=== PATIENT | female | born 1940 | race Caucasian/White ===

== ENCOUNTER 2017-01-10 14:05 | Emergency (ER) | payer MEDICARE ==
[2017-01-10] MEDS ORDERED: HYDROmorphone HCL/PF 1 MG/ML DISP.SYRIN IVP ONE (14:22)
--- NOTE | 2017-01-10 14:27 | ED Physician Documentation ---
General Adult - HISTORIAN Historian: patient - HPI Stated Complaint: low back pain, L hip pain Chief Complaint: General Adult Onset: days ago Timing: still present Severity: moderate Further Comments: yes (Pt is a 76 yo female with low back and L hip & L thigh pain. Pt says she lifted her 100 lb dog a few days ago. Pain did not start on that occasion, however, but began the next day. Pt says she feels as though she has muscle cramps in her L thigh.) - ROS CONST: no problems EYES/ENT: none CVS/RESP: none GI/: none MS/SKIN/LYMPH: other (low back pain; L hip/thigh pain, cramping) - PAST HX Past History: hypertension, other (Hyperlipidemia, anxiety) Allergies/Adverse Reactions: Allergies Allergy/AdvReac Type Severity Reaction Status Date / Time Penicillins Allergy Verified 01/10/17 14:30 - SOCIAL HX Smoking History: cigarettes - FAMILY HX Family History: No - REVIEWED ASSESSMENTS Nursing Assessment Reviewed: Yes Vitals Reviewed: Yes Progress - Progress Progress: X-ray L-spine: Advanced multilevel lumbar spondylosis. X-ray pelvis & L hip: Lower lumbar spondylosis is present. The osseous pelvis and proximal left femur are intact without fracture, dislocation, arthropathy, or focal bone lesion. [place] (5/325) 2 tablets po in ER. Rx [place] (5/325). Take one or two tablets by mouth every 4 to 6 hrs as needed for moderate to severe pain. Pt, who lives alone, requested to stay in [facility]. Pt's daughter is flying here from her home in the [facility]. Expect to d/c pt after daughter arrives in [place]. Admit to [facility], Dr. Manzano. ED Results Lab/Radiology - Orders Orders: ED Orders Category Date Time Status HYDROmorphone HCL/PF [Dilaudid] Med 01/10/17 14:22 Discontinued 1 mg IVP NOW ONE General Adult Physical Exam - PHYSICAL EXAM GENERAL APPEARANCE: moderate distress EENT: eye inspection normal, pharynx normal NECK: normal inspection, supple RESPIRATORY: no resp distress, chest non-tender, breath sounds normal CVS: reg rate & rhythm, heart sounds normal ABDOMEN: soft, normal bowel sounds, non-tender BACK: normal inspection, no CVA tenderness SKIN: warm/dry, normal color EXTREMITIES: no evidence of injury, tenderness (L thigh (muscular)) NEURO: oriented X3, motor nml, sensation nml, other (DTR's wnl) Discharge Clincal Impression: L hip/thigh pain Low back pain Qualifiers: Chronicity: acute Back pain laterality: unspecified Sciatica presence: unspecified whether sciatica present Qualified Code(s): M54.5 - Low back pain Referrals: Pamela Joel MD [Primary Care Provider] - Condition: Good Disposition: [address] [place] [address] Decision to Admit: [id number] Date of Decison to Admit: 01/10/17 (ICF) Decision Time: 17:45
[2017-01-10] MEDS: HYDROcodone /APAP 5/325 1 EACH TABLET PO ONE (15:52)
[2017-01-10 16:36] LABS: BASOPHILS % 0.5 (0.0-1.5); EOSINOPHILS % 1.1 % (0.0-6.8); MONOCYTES # 0.4 # k/uL (0.0-0.9); MONOCYTES % 4.1 % (0.0-11.0); NEUTROPHILS # 7.2 # k/uL (1.4-7.7)
[2017-01-10 16:53] LABS: eGFR (African) > 60; eGFR (Non-African) > 60
[2017-01-10 18:02] VITALS: BP 132/68
--- NOTE | 2017-01-10 19:11 | History and Physical Report ---
History of Present Illnes - History of Present Illness Reason for Visit: Back and Hip Pain History of Present Illness: This is a 76 year old female, patient of Dr Gore who presented to the ER with low back and hip pain. She had lifted her 100 lb dog a few days ago, and then in the ensuing days, has developed some worsening low back and left hip pain, prompting her to come to the ER for evaluation. X rays there showed no evidence of compression fractures, advanced osteoarthritis, and also no hip fractures were noted. She did not feel safe returning to her home tonight, and as a result, came to the ER for evaluation. Her daughter is on the way from [facility] to be with her. - Past Medical History Cardiac: Hyperlipidemia, Other (Prinzmetal's angina) Psych: Depression ENT: Other (macular degeneration) Endocrine: Other (menopausal) Dermatology: denies: Other - Past Surgical History Past Surgical History: Appendectomy, Cataract Removal, Hysterectomy (with BSO due to endometriosis) - Past Social History Smoke: <1 pack per day Alcohol: None Drugs: None Lives: Alone Domestic Violence: Negative - Health Maintenance Health Maintenance: Cholesterol Influenza Vaccine: Current for this Influenza Season Pneumonia Vaccine: Yes Resuscitation Status: Full Code - Unable to Obtain History Unable to Obtain: No Review of Systems - Review of Systems Constitutional: Sweats. negative: Fever Eyes: pain (left hip) ENT: negative: Ear Pain Respiratory: Shortness of Breath, Wheezing Cardiovascular: negative: Chest Pain Gastrointestinal: negative: Nausea, Vomiting Genitourinary: negative: Dysuria, Frequency Musculoskeletal: negative: Neck Pain, Shoulder Pain Skin: negative: Rash, Lesions Neurological: negative: Weakness, Numbness - Medications/Allergies Allergies/Adverse Reactions: Allergies Allergy/AdvReac Type Severity Reaction Status Date / Time Penicillins Allergy Verified 01/10/17 14:30 Exam - Exam Vital Signs: Vital Signs (72 hours) 01/10/17 18:00 Pulse Rate [ 72 Right Pulse ox] Respiratory 16 Rate Blood Pressure 132/68 [Right Arm] O2 Sat by Pulse 98 Oximetry General: Alert, Oriented to Person, Oriented to Place, Oriented to Time, Cooperative, Moderate distress (due to left hip pain) HEENT: Atraumatic, PERRLA, EOMI Neck: No: Stridor, Rigidity Lungs: Wheezes, Prolonged Expiration Cardiovascular: Regular rate Murmur: No: Systolic Murmur Murmur Location: No: [place] Abdomen: Normal bowel sounds, Soft, No tenderness Genitourinary: No: Right Inguinal Hernia, Left Inguinal Hernia Male Genitourinary: No: Other Female Genitourinary: No: Prolapse Integumentary: Normal, [place], Warm Extremities: No clubbing, No cyanosis, No edema, No tenderness/swelling Neurological: Normal gait, Normal speech Psych/Mental Status: Mental status NL, Mood NL, Appropriate Affect, Intact Judgment Assessment/Plan - Assessment/Plan (1) Low back pain Status: Acute Current Visit: Yes Qualifiers: Chronicity: acute Back pain laterality: unspecified Sciatica presence: unspecified whether sciatica present Qualified Code(s): M54.5 - Low back pain VTE Assessment - RISK FACTOR SCORE VTE RISK FACTOR SCORES: AGE OVER 60 YEARS - RISK VTE LOW RISK: SCORE OF 1 OR LESS (RISK PROXIMAL DVT 0.4%) NO PROPHYLAXIS NEEDED
--- NOTE | 2017-01-11 07:04 | Diagnostic Imaging Report ---
[facility] [address] [facility].[address] [address] ~ ~ ~ ~ Report Submission Date: Jan 10, 2017 4:01:21 PM DISPLAY DEPARTMENT MANAGER Patient ~ Study Name: JIGAR HIDALGO ~ Date: Jan 10, 2017 3:04:25 PM DISPLAY DEPARTMENT MANAGER ~ Modality Type: CR Gender: F ~ Description: PELVIS : 39 ~ Institution: [facility] Physician [facility]NIS [facility] ~ ~ ~ Left hip two views with AP pelvis HISTORY: ~ Low back and left hip pain FINDINGS: ~ Lower lumbar spondylosis is present. ~The osseous pelvis and proximal left femur are intact without fracture, dislocation, arthropathy, or focal bone lesion. IMPRESSION: ~ Lower lumbar spondylosis. ~ Electronically signed on Jan 10, 2017 4:01:21 PM DISPLAY DEPARTMENT MANAGER by: Martin CAMPBELL
--- NOTE | 2017-01-11 07:05 | Diagnostic Imaging Report ---
[facility] [address] [facility].[address] [address] ~ ~ ~ ~ Report Submission Date: Jan 10, 2017 4:00:14 PM SANIPRACTIC PHYSICIAN Patient ~ Study Name: JIGAR HIDALGO ~ Date: Jan 10, 2017 3:09:03 PM SANIPRACTIC PHYSICIAN ~ Modality Type: CR Gender: F ~ Description: SPINE : 39 ~ Institution: [facility] Physician [facility] ~ ~ ~ Lumbar spine three views HISTORY: ~ Low back pain FINDINGS: ~ Degenerative disc disease is mild at L1-2 and advanced at L2-3 and L3-4. ~ Degenerative retrolisthesis is present at L2-3, L3-4, and L4-5. ~Grade 1 L5-S1 spondylolisthesis is likely related to facet arthropathy. ~Atherosclerotic calcifications are observed. ~An L4 inferior endplate invagination is of uncertain age. ~Atherosclerotic calcifications are present. IMPRESSION: ~ Advanced multilevel lumbar spondylosis. ~ Electronically signed on Jan 10, 2017 4:00:14 PM SANIPRACTIC PHYSICIAN by: Martin CAMPBELL
[2017-01-11] MEDS ORDERED: ONDANSETRON HCL 4 MG TAB.RAPDIS ONE (10:55)
== END 2017-01-10 18:00 ==
LOC: ED 14:05 → UNDOADMIN 17:55 → ICF 17:55
DX: M54.5 Low back pain (principal); M79.652 Pain in left thigh
CPT/HCPCS: 36415; 72100; 73502; 80053; 85025; A9270; 96374; 99283; 99284

== ENCOUNTER 2017-01-10 18:01 | Inpatient (IN) | payer SELFPAY ==
[2017-01-10 18:02] VITALS: BP 132/68
== END 2017-01-11 21:30 | disposition home or self-care (01) | DRG 93 ==
LOC: UNDOADMIN 18:01 → ICF 18:01
PROVIDERS: ADMIT Family Medicine; ATTEND Family Medicine
DX: R26.9 Unspecified abnormalities of gait and mobility (principal)

== ENCOUNTER 2017-01-11 15:19 | Outpatient (CLI) | payer MEDICARE ==
[2017-01-10 18:02] VITALS: BP 132/68
--- NOTE | 2017-01-12 02:02 | Diagnostic Imaging Report ---
Report Submission Date: Jan 11, 2017 4:22:04 PM DITCH WORKER Patient ~ Study Name: JIGAR HIDALGO ~ Date: Jan 11, 2017 3:58:35 PM DITCH WORKER ~ Modality Type: CR Gender: F ~ Description: LOWER EXTREMITY : 39 ~ Institution: [facility] Physician: ROBERT WIGGINS ~ ~ ~ ~ Left femur 2 views Clinical history: Injured left femur during fall No visible fracture, dislocation or bone destruction. Impression : Normal left femur ~ Electronically signed on Jan 11, 2017 4:22:04 PM DITCH WORKER by: Fausto CAMPBELL
== END 2017-01-11 15:20 ==
LOC: RAD 15:19
PROVIDERS: ATTEND Family Medicine
DX: M79.605 Pain in left leg (principal)
CPT/HCPCS: 73552

== ENCOUNTER 2017-01-13 12:26 | Outpatient (CLI) | payer MEDICARE ==
--- NOTE | 2017-01-13 14:38 | Diagnostic Imaging Report ---
[facility] [address] [facility] [address] [address] Report Submission Date: Jan 13, 2017 2:36:00 PM NURSING AIDE Patient Study Name: JIGAR HIDALGO Date: Jan 13, 2017 12:41:24 PM NURSING AIDE Modality Type: CT\SR Gender: F Description: CT PELVIS W/O CONTRAST : 39 Institution: [facility] Physician NENITA VALERIO - CECIL CT of the pelvis without contrast CLINICAL HISTORY: Severe left hip pain for 1 week. TECHNIQUE: CT of the pelvis is performed in contiguous axial slices with sagittal and coronal reconstructions. FINDINGS: There are degenerative changes in the visualized lumbar vertebrae. There is irregularity of the inferior endplate of L4 suggesting an acute endplate fracture. Degenerative facet changes are present at L4-5 and L5-S1. Sacroiliac joints are symmetric. Femoral heads are normally seated in the acetabula. Pubic rami are intact. IMPRESSION: Irregularity of the inferior endplate of L4 consistent with an acute fracture. This is at the superior most extent of the examination and is only visualized on the first 3-4 slices. Lumbar spondylosis. No evident hip fracture. Electronically signed on Jan 13, 2017 2:36:00 PM NURSING AIDE by: Kushal CAMPBELL
== END 2017-01-13 12:27 ==
LOC: RAD 12:26
PROVIDERS: ATTEND Family Medicine
DX: M47.896 Other spondylosis, lumbar region (principal); M25.552 Pain in left hip; S32.049A Unspecified fracture of fourth lumbar vertebra, initial encounter for closed fracture; X58.XXXA Exposure to other specified factors, initial encounter; Y93.9 Activity, unspecified; Y92.9 Unspecified place or not applicable
CPT/HCPCS: 72192

== ENCOUNTER 2017-07-07 09:31 | Outpatient (CLI) | payer MEDICARE ==
[~2017-07-07 09:31] MED LIST: 0.9 % SODIUM CHLORIDE PF 10 ML VIAL IJ ONE; Lidocaine 1% 5ml(IM or SUTURE)(PAIN CLINIC) ONE; TRIAMCINOLONE ACETONID 40MG/ML VIAL ONE
--- NOTE | 2017-07-07 14:20 | HISTORY AND PHYSICAL REPORT ---
REFERRING PHYSICIAN: Dr. Pamela Joel Dear Pamela: HISTORY OF PRESENT ILLNESS: I had the opportunity of seeing Jewel Boateng today as an outpatient at . Mrs. Boateng is a very delightful 76-year-old white female who presents with left-sided hip and anterior leg pain which began in the middle part of December. She was lifting her 130 pound black [place] into her car and a few days later she began noticing pain in her left hip and anterior thigh and at times down the front of the leg to the foot. She denies any other type of accident or injury. She says the pain is worse with standing , bending, walking, and twisting and worse over the course of the day and better with rest but does not resolve. She really denies start-up symptoms. She denies symptoms of hip arthropathy. She says the leg can give out on her and she has had x-ray imaging which revealed degenerative disk disease and facet arthropathy at L1-L2, L2-L3, L3-L4, and L4-L5. She has not had an MRI study at this point. She denies pain on the right side. She denies neurogenic claudication. She has symptoms consistent with radiculitis. PAST MEDICAL HISTORY: 1. Heart murmur. 2. Bruises easily. PAST SURGICAL HISTORY: 1. Appendectomy in 1950s. 2. Tonsillectomy in the 1939s. 3. Hysterectomy in 1970. 4. Two fatty tumors removed off her spine in . CURRENT MEDICATION LIST: 1. Tramadol 50 mg p.r.n. 2. Tizanidine 4 mg p.r.n. 3. Pravastatin 80 mg daily. 4. Diltiazem 180 mg b.i.d. 5. Lorazepam 0.75 mg at bedtime. 6. Tylenol 500 mg p.r.n. 7. Multivitamin daily. 8. Ocuvite daily. 9. Hair, Skin, and Nails daily. 10. Tums as needed. ALLERGIES: Patient reports allergies to: 1. Penicillin. 2. Adhesives. SOCIAL HISTORY: Patient currently smokes 1-1/2 packs of cigarettes per day. She denies alcohol or recreational drug use. She was in 2013. She has 1 child. She lives alone. She went to school through high school. She is not currently employed. She is not currently employed. She reports disability. She stopped working in 1987. FAMILY HISTORY: Positive for cancer in patient's mother. REVIEW OF SYSTEMS: Review of systems is negative. TREATMENT FOR THE CURRENT PAIN PROBLEMS: Treatment includes Medrol Dosepak x2 which she reports helped short term and then stopped in the assisted. She has also taken hydrocodone, which she does not like to use. She takes Tramadol as needed but reports it primarily makes her sleepy and does not help with her pain. PHYSICAL EXAMINATION: General: This is a well-nourished, well-developed white female in no apparent distress. Vital Signs: BP: 140/67, P: 80, R: 20, oxygen saturation is 96% on room air. HEENT: Pupils are equal, round, and reactive to light and accommodation. Extraocular movements intact. No facial droop. Neck: There is full range of motion of the cervical spine. No evidence of adenopathy. Thyroid is nontender, no enlarged. Carotids are without bruits. Chest: Clear to auscultation bilaterally. Normal chest excursion. Heart: Regular rate and rhythm without murmur. Abdomen: Benign. Normoactive bowel sounds. Motor/sensory: Intact in the upper and lower extremities. Moves all extremities freely. Musculoskeletal: There is a positive straight leg raise on the left. Pain at the left sciatic notch. Positive femoral nerve stretch. Negative IRWIN. Negative assisted extension and extension rotation. ASSESSMENT: Likely left L3 versus L4 radiculitis consistent with nerve root irritation. PLAN: Plan today for a lumbar epidural steroid injection. We will order an MRI study of the lumbar spine and follow her up next month. Thank you for allowing me to take part in the care of this nice lady. I appreciate the opportunity to take part in the care of your patients. cc: Dr. Pamela CAMPBELL
--- NOTE | 2017-07-07 14:24 | LESI WITH FLUORO ---
REFERRING PHYSICIAN: Dr. Pamela Joel OPERATIVE PROCEDURE: Left L4-L5 epidural steroid injection with fluoroscopic guidance. DESCRIPTION OF PROCEDURE: The risks and benefits were discussed with the patient including the risk of infection, bleeding, nerve injury, and headache, as well as the risks of steroid exposure causing hyperglycemia, hypertension, osteoporosis, or increased infectious risks. The patient understood these risks and agreed to proceed. Consent was obtained prior to the procedure. The patient was placed in the prone position on the fluoroscopy table with a pillow underneath the abdomen to afford anterior flexion of the lumbar spine. The low back was cleaned and a sterile drape was applied. An 18-gauge thin wall Tuohy epidural needle was advanced with normal saline loss of resistance technique and direct fluoroscopic guidance with a left paramedian approach at the L4-L5 level. On obtaining loss of resistance to normal saline, it was verified that there was no aspiration of CSF or blood. Furthermore, the needle tip location was verified with lateral and AP fluoroscopic views. Omnipaque 240 myelogram dye were injected through the epidural needle. The distribution of the dye was noted to be within the desired distribution within the lumbar epidural space. The patient did report some reproduction of the low back and / or lower extremity pain symptoms; this reproduction of symptoms was short- lived. The medications were injected into the epidural space. The stylet was replaced in the needle and the needle was removed from the back. The patient tolerated the procedure well. The back was cleaned and a bandage was applied over the injection site. The patient was monitored for 20 minutes following the procedure. during this time the vital signs remained stable and the patient experienced no adverse sequelae. The patient was discharged in good condition. ASSESSMENT: Left lumbar radiculitis. PLAN: Left L4-L5 epidural steroid injection with fluoroscopic guidance today. FOLLOWUP: Return to clinic if problems develop or worsen. cc: Dr. Pamela CAMPBELL
== END 2017-07-07 10:30 ==
LOC: OUT 09:31
PROVIDERS: ATTEND Anesthesiology Pain Medicine
DX: M54.16 Radiculopathy, lumbar region (principal)
CPT/HCPCS: J3301; Q9966; 99213; G0463

== ENCOUNTER 2017-08-04 10:36 | Outpatient (CLI) | payer MEDICARE ==
--- NOTE | 2017-08-04 14:50 | LESI WITH FLUORO ---
SUBJECTIVE: I had the opportunity of following up with Jewel Boateng today as an outpatient at [facility]. Jewel is a delightful 77-year-old white female who presents with left lower extremity pain and L4 radiculitis. She did very well after a left L4-L5 epidural injection was placed. She had 2 weeks of complete pain relief. She has had some return of pain. She is still doing better overall. She is apparently relocating to [facility] to be closer to her daughter and she is seeking for a repeat injection today. Plan today for a left L4-L5 epidural steroid injection for lumbar radiculitis. OPERATIVE PROCEDURE: Left L4-L5 epidural steroid injection with fluoroscopic guidance. DESCRIPTION OF PROCEDURE: The risks and benefits were discussed with the patient including the risk of infection, bleeding, nerve injury, and headache, as well as the risks of steroid exposure causing hyperglycemia, hypertension, osteoporosis, or increased infectious risks. The patient understood these risks and agreed to proceed. Consent was obtained prior to the procedure. The patient was placed in the prone position on the fluoroscopy table with a pillow underneath the abdomen to afford anterior flexion of the lumbar spine. The low back was cleaned and a sterile drape was applied. A 25-gauge thin wall Tuohy epidural needle was advanced with normal saline loss of resistance technique and direct fluoroscopic guidance with a left paramedian approach at the L4-L5 level. On obtaining loss of resistance to normal saline, it was verified that there was no aspiration of CSF or blood. Furthermore, the needle tip location was verified with lateral and AP fluoroscopic views. Omnipaque 240 myelogram dye were injected through the epidural needle. The distribution of the dye was noted to be within the desired distribution within the lumbar epidural space. The medication was injected into the epidural space. The stylet was replaced in the needle and the needle was removed from the back. The patient tolerated the procedure well. The back was cleaned and a bandage was applied over the injection site. The patient was monitored for 20 minutes following the procedure. during this time the vital signs remained stable and the patient experienced no adverse sequelae. The patient was discharged in good condition. ASSESSMENT: Lumbar radiculitis. PLAN: Left L4-L5 epidural steroid injection for lumbar radiculitis. FOLLOWUP: Return to clinic if problems develop or worsen. Follow up on a p.r.n. basis. cc: Dr. Pamela CAMPBELL
== END 2017-08-04 10:37 ==
LOC: OUT 10:36
PROVIDERS: ATTEND Anesthesiology Pain Medicine
DX: M54.16 Radiculopathy, lumbar region (principal)
CPT/HCPCS: J3301; Q9966; 99213; G0463

== ENCOUNTER 2017-08-06 13:25 | Outpatient (CLI) | payer MEDICARE ==
[2017-08-06 14:33] LABS: eGFR (African) > 60; eGFR (Non-African) > 60
== END 2017-08-06 13:26 ==
LOC: LAB 13:25
PROVIDERS: ATTEND Family Medicine
DX: E78.2 Mixed hyperlipidemia (principal); R63.4 Abnormal weight loss
CPT/HCPCS: 36415; 80053; 80061; 84443

== ENCOUNTER 2017-08-11 11:14 | Outpatient (CLI) | payer MEDICARE ==
--- NOTE | 2017-08-11 17:27 | Diagnostic Imaging Report ---
[facility] [address] [facility].[address] [address] Report Submission Date: Aug 11, 2017 11:47:10 AM CDT Patient Study Name: JIGAR HIDALGO Date: Aug 11, 2017 11:16:47 AM CDT Modality Type: CR Gender: F Description: CHEST : 39 Institution: [facility] Physician: NENITA VALERIO - CECIL Examination: PA and lateral chest. History: Evaluate lung chi. Comparison exam: None available Findings: PA lateral chest demonstrate a normal cardiac and mediastinal silhouette. Vascular calcifications involving the aortic arch. No focal infiltrate. No blunting of the costophrenic margins. Osseous structures are appropriate for age. Impression: No acute pulmonary process. Given patient's reported symptoms, consider obtaining CT chest if clinically warranted. Electronically signed on Aug 11, 2017 11:47:10 AM CDT by: Ramon CAMPBELL
== END 2017-08-11 11:15 ==
LOC: RAD 11:14
PROVIDERS: ATTEND Family Medicine
DX: R63.4 Abnormal weight loss (principal)
CPT/HCPCS: 71020